=== PATIENT | female | born 1955 | race Caucasian/White ===

== ENCOUNTER 2018-09-30 22:33 | Emergency (ER) | payer MEDICARE, BC ==
[~2018-09-30] VITALS: Wt 94.3 kg
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
[2018-10-01] MEDS ORDERED: HYDROCODONE/APAP (5/325) TAB PO ONE (01:00)
[2018-10-01] MEDS ORDERED: IBUP-1542 PO (02:37)
[2018-10-01] MEDS ORDERED: CYCL10TA7 PO (02:37)
[2018-10-01] MEDS ORDERED: OMEP40CA6 PO (02:38)
[2018-10-01 03:05] VITALS: BP 142/79; PULSE 70; RESP 18
== END 2018-10-01 03:06 | disposition home or self-care (01) ==
LOC: FTE 22:33
DX: S10.93XA Contusion of unspecified part of neck, initial encounter (principal); S20.211A Contusion of right front wall of thorax, initial encounter; M62.838 Other muscle spasm; V53.5XXA Driver of pick-up truck or van injured in collision with car, pick-up truck or van in traffic accident, initial encounter
CPT/HCPCS: 71046; 72040